=== PATIENT | female | born 1945 | race Caucasian/White ===

== ENCOUNTER 2016-06-01 05:53 | Emergency (ER) | payer MEDICARE ==
[2016-06-01] MEDS ORDERED: DIPH,PERTUS(ACELL)TETVAC-LF 0.5 ML VIAL IM ONE (05:59)
--- NOTE | 2016-06-01 06:06 | ED ---
General Adult HPI - General Stated complaint: right hand injury Time Seen by Provider: 06/01/16 05:55 Source: RN notes reviewed - History of Present Illness Initial comments: This is a 70-year-old female who presents to the emergency department complaining of a skin tear on the posterior aspect of her right hand she says she scraped across a metal at home. Patient does not have a tetanus up-to- date. Patient had no crush injury or blunt trauma to the area. Patient has full range of motion of her fingers wrist and hand. Patient denies any other injury. Patient states she took some Motrin prior to arrival. - Related Data Home Medications Medication Instructions Recorded Confirmed Lisinopril [Zestril] 5 mg PO DAILY 02/13/15 02/13/15 Previous Rx's Medication Instructions Recorded Diazepam [Valium] 5 mg PO TID PRN #20 tab 02/14/15 Allergies Allergy/AdvReac Type Severity Reaction Status Date / Time Penicillins Allergy Unknown Verified 02/13/15 22:50 Review of Systems ROS Statement: Those systems with pertinent positive or pertinent negative responses have been documented in the HPI. ROS Other: All systems not noted in ROS Statement are negative. Past Medical History Past Medical History: Hypertension History of Any Multi-Drug Resistant Organisms: None Reported Past Surgical History: Cholecystectomy, Hysterectomy, Orthopedic Surgery Additional Past Surgical History / Comment(s): bharat knees Past Psychological History: No Psychological Hx Reported Smoking Status: Never smoker Past Alcohol Use History: None Reported Past Drug Use History: None Reported General Exam - General Exam Comments Initial Comments: GENERAL Patient is well-developed and well-nourished. Patient is in mild distress. EYES Patient's pupils are equal and round. Extraocular motion is intact SKIN Unremarkable NEURO The patient is alert and oriented 3 PYSCH Patient has normal interpersonal interactions. MUSCULOSKELETAL Patient has a skin tear in the shape of the posterior aspect of her right hand. Medical Decision Making - Medical Decision Making patient had a skin tear which I used Dermabond to approximate and then Steri- Strips were placed over it. Patient received a tetanus in the emergency department Disposition Clinical Impression: Skin tear of hand without complication Disposition: HOME SELF-CARE Condition: Good Instructions: Skin Tear (ED) Referrals: Ijeoma Saldaña MD [Primary Care Provider] - 1-2 days Time of Disposition: 06:06
[2016-06-01 06:29] VITALS: BP 138/63; PULSE 58; RESP 20; TEMP 97
== END 2016-06-01 06:28 | disposition home or self-care (01) ==
LOC: EC 05:53
DX: S61.411A Laceration without foreign body of right hand, initial encounter (principal); W45.8XXA Other foreign body or object entering through skin, initial encounter; I10 Essential (primary) hypertension; Z79.899 Other long term (current) drug therapy; Z88.0 Allergy status to penicillin
CPT/HCPCS: 12001; 90471; 90715; 99282

== ENCOUNTER → 2017-10-23 | Outpatient (CLI) | payer MEDICARE ==
[2017-10-23 09:23] LABS: Albumin 3.9 g/dL (3.5-5.0); Calcium 9.3 mg/dL (8.4-10.2); Potassium 4.6 mmol/L (3.5-5.1); Total Bilirubin 0.9 mg/dL (0.2-1.3); Total Protein 6.8 g/dL (6.3-8.2)
[2017-10-23 19:03] LABS: Hemoglobin A1C 7.4 % (4.0-6.0)
== END | disposition home or self-care (01) ==
LOC: LABWHC1 07:54
PROVIDERS: ATTEND Internal Medicine
DX: E11.9 Type 2 diabetes mellitus without complications (principal); E78.5 Hyperlipidemia, unspecified; I10 Essential (primary) hypertension
CPT/HCPCS: 36415; 80053; 80061; 83036

== ENCOUNTER → 2017-11-12 | Outpatient (CLI) | payer MEDICARE ==
--- NOTE | 2017-11-13 14:33 | MM ---
Reason for exam: screening (asymptomatic). Last mammogram was performed 2 years and 8 months ago. History: Patient is postmenopausal and has history of endometrial cancer at age 23. Family history of breast cancer in mother at age 60. Stereotactic core biopsy of the right breast, April 25, 2004. Took hormonal contraceptives for 6 months. Physical Findings: A clinical breast exam by your physician is recommended on an annual basis and results should be correlated with mammographic findings. MG Screening Mammo w CAD Bilateral CC and MLO view(s) were taken. Prior study comparison: March 07, 2015, bilateral MG screening mammo w CAD. October 19, 2010, bilateral digital screening mammo w/CAD. Finding #1: There are typically benign circumscribed round oval stable masses in both breasts. Finding #2: There are typically benign calcifications in both breasts. No suspicious abnormality. Right biopsy marker noted. No significant changes in finding since March 07, 2015 and October 19, 2010. ASSESSMENT: Benign, BI-RAD 2 RECOMMENDATION: Routine screening mammogram of both breasts in 1 year.
== END | disposition home or self-care (01) ==
LOC: RADMAMWWP 07:08
PROVIDERS: ATTEND Internal Medicine
DX: Z12.31 Encounter for screening mammogram for malignant neoplasm of breast (principal)
CPT/HCPCS: 77067

== ENCOUNTER → 2018-01-27 | Outpatient (CLI) | payer MEDICARE ==
[2018-01-27 08:40] LABS: Albumin 3.9 g/dL (3.5-5.0); Calcium 9.3 mg/dL (8.4-10.2); Potassium 4.7 mmol/L (3.5-5.1); Total Bilirubin 0.8 mg/dL (0.2-1.3); Total Protein 6.9 g/dL (6.3-8.2)
[2018-01-27 19:44] LABS: Hemoglobin A1C 7.2 % (4.0-6.0)
== END | disposition home or self-care (01) ==
LOC: LABWHC1 07:18
PROVIDERS: ATTEND Internal Medicine
DX: E11.65 Type 2 diabetes mellitus with hyperglycemia (principal); I10 Essential (primary) hypertension; E78.2 Mixed hyperlipidemia
CPT/HCPCS: 36415; 80053; 80061; 83036

== ENCOUNTER → 2018-09-04 | Outpatient (CLI) | payer MEDICARE ==
[2018-09-04 17:23] LABS: Anion Gap 7.8 mmol/L (4.00-12.00); Carbon Dioxide 26.2 mmol/L (21.6-31.8); Potassium 4.9 mmol/L (3.5-5.5)
[2018-09-04 19:43] LABS: Hemoglobin A1C 7.1 % (4.0-6.0)
== END | disposition home or self-care (01) ==
LOC: LABWHC1 07:58
PROVIDERS: ATTEND Internal Medicine
DX: E11.9 Type 2 diabetes mellitus without complications (principal)
CPT/HCPCS: 36415; 80051; 82565; 83036; 84520

== ENCOUNTER → 2018-12-24 | Outpatient (CLI) | payer MEDICARE ==
[2018-12-24 11:28] LABS: African American GFR (CKD) 63.8 (60.0-200.0); Albumin 3.9 g/dL (3.80-4.90); Albumin/Globulin Ratio 1.7 (1.60-3.17); Anion Gap 13.6 mmol/L (4.00-12.00); Carbon Dioxide 24.4 mmol/L (21.6-31.8); Chol/HDL Ratio 3.55; Globulin 2.3 g/dL (1.6-3.3); LDL Cholesterol,Calculated 99.6 mg/dL (0.0-131.0); Non-African American GFR(CKD) 55.1 (60.0-200.0); Potassium 4.3 mmol/L (3.5-5.5); Total Bilirubin 1.1 mg/dL (0.3-1.2); Total Protein 6.2 g/dL (6.2-8.2); VLDL Calculation 30.4 mg/dL (5.00-40.00)
[2018-12-24 14:26] LABS: Hemoglobin A1C 6.7 % (4.0-6.0)
== END | disposition home or self-care (01) ==
LOC: LABWHC1 06:53
PROVIDERS: ATTEND Internal Medicine
DX: E11.9 Type 2 diabetes mellitus without complications (principal); I10 Essential (primary) hypertension
CPT/HCPCS: 36415; 80053; 80061; 83036

== ENCOUNTER → 2019-01-20 | Outpatient (CLI) | payer MEDICARE ==
--- NOTE | 2019-01-21 11:01 | MM ---
Reason for exam: screening (asymptomatic). Last mammogram was performed 1 year and 2 months ago. History: Patient is postmenopausal and has history of endometrial cancer at age 23. Family history of breast cancer in mother at age 60. Stereotactic core biopsy of the right breast, April 25, 2004. Took hormonal contraceptives for 6 months. Physical Findings: A clinical breast exam by your physician is recommended on an annual basis and results should be correlated with mammographic findings. MG 3D Screening Mammo W/Cad Bilateral CC and MLO view(s) were taken. Prior study comparison: November 12, 2017, bilateral MG screening mammo w CAD. March 07, 2015, bilateral MG screening mammo w CAD. There are scattered fibroglandular densities. Benign appearing bilateral calcifications. No suspicious abnormality. No significant changes when compared with prior studies. ASSESSMENT: Benign, BI-RAD 2 RECOMMENDATION: Routine screening mammogram of both breasts in 1 year.
== END | disposition home or self-care (01) ==
LOC: RADMAMWWP 15:00
PROVIDERS: ATTEND Internal Medicine
DX: Z12.31 Encounter for screening mammogram for malignant neoplasm of breast (principal)
CPT/HCPCS: 77063; 77067

== ENCOUNTER → 2019-06-01 | Outpatient (CLI) | payer MEDICARE ==
[2019-06-01 14:56] LABS: Hemoglobin A1C 6.7 % (4.0-6.0)
[2019-06-01 15:58] LABS: African American GFR (CKD) 72.5 (60.0-200.0); Albumin 3.9 g/dL (3.80-4.90); Albumin/Globulin Ratio 1.77 (1.60-3.17); Anion Gap 7.5 mmol/L (4.00-12.00); BUN/Creat Ratio 16.67 Ratio (12.00-20.00); Calcium 8.8 mg/dL (8.7-10.3); Carbon Dioxide 26.5 mmol/L (21.6-31.8); Globulin 2.2 g/dL (1.6-3.3); Non-African American GFR(CKD) 62.5 (60.0-200.0); Potassium 4.4 mmol/L (3.5-5.5); Total Bilirubin 0.7 mg/dL (0.3-1.2); Total Protein 6.1 g/dL (6.2-8.2)
== END | disposition home or self-care (01) ==
LOC: LABWHC1 07:57
PROVIDERS: ATTEND Internal Medicine
DX: I10 Essential (primary) hypertension (principal); E11.9 Type 2 diabetes mellitus without complications
CPT/HCPCS: 36415; 80053; 83036

== ENCOUNTER → 2020-02-11 | Outpatient (CLI) | payer MEDICARE ==
--- NOTE | 2020-02-15 11:16 | MM ---
Reason for exam: screening (asymptomatic). Last mammogram was performed 1 year and 1 month ago. History: Patient is postmenopausal and has history of endometrial cancer at age 23. Family history of breast cancer in mother at age 60. Stereotactic core biopsy of the right breast, April 25, 2004. Took hormonal contraceptives for 6 months. Physical Findings: A clinical breast exam by your physician is recommended on an annual basis and results should be correlated with mammographic findings. MG 3D Screening Mammo W/Cad Bilateral CC and MLO view(s) were taken. Prior study comparison: January 20, 2019, bilateral MG 3d screening mammo w/cad. November 12, 2017, bilateral MG screening mammo w CAD. There are scattered fibroglandular densities. Previous mammotome biopsy in the right breast. There is chronic nodularity in the left breast. No significant changes when compared with prior studies. ASSESSMENT: Benign, BI-RAD 2 RECOMMENDATION: Routine screening mammogram of both breasts in 1 year.
== END | disposition home or self-care (01) ==
LOC: RADMAMWWP 13:47
PROVIDERS: ATTEND Internal Medicine
DX: Z12.31 Encounter for screening mammogram for malignant neoplasm of breast (principal); Z80.3 Family history of malignant neoplasm of breast
CPT/HCPCS: 77063; 77067

== ENCOUNTER → 2021-01-08 | Outpatient (CLI) | payer MEDICARE ==
[2021-01-08 11:58] LABS: African American GFR (CKD) 62.9 (60.0-200.0); Anion Gap 6.8 mmol/L (4.00-12.00); Carbon Dioxide 28.2 mmol/L (21.6-31.8); Non-African American GFR(CKD) 54.3 (60.0-200.0); Potassium 4.5 mmol/L (3.5-5.5)
== END | disposition home or self-care (01) ==
LOC: LABWHC1 07:10
PROVIDERS: ATTEND Internal Medicine
DX: E11.9 Type 2 diabetes mellitus without complications (principal); I10 Essential (primary) hypertension
CPT/HCPCS: 36415; 80051; 82565; 83036; 84520

== ENCOUNTER 2022-03-13 15:21 | Emergency (ER) | payer MEDICARE ==
[2022-03-13 15:36] VITALS: RESP 16
[2022-03-13] MEDS ORDERED: ORPHENADRINE 30 MG/ML 2 ML VIAL IM STA (16:18)
[2022-03-13] MEDS ORDERED: DEXAMETHASONE SOD PHOSPHATE 10 MG/ML 1 ML VIAL IM STA (16:18)
[2022-03-13] MEDS ORDERED: KETOROLAC 15 MG/ML 1 ML VIAL IM STA (16:18)
--- NOTE | 2022-03-13 16:23 | ED ---
Back Pain HPI - General Chief Complaint: Back Pain/Injury Stated Complaint: psychotic nerve pain Time Seen by Provider: 03/13/22 16:02 Source: patient Limitations: no limitations - History of Present Illness Initial Comments: Patient is a 76-year-old female presenting with chief complaint of lower back pain. Patient has a history of sciatic nerve pain, states that this pain feels identical to previous sciatica flareups. Patient states that after a large bowel movement today the pain is been flaring up. She has been using a lidocaine patch or Motrin at home with little relief. She admits to radiation of pain down the right leg. She denies any loss of bowel or bladder control or saddle paresthesia. No recent trauma or injury. No loss of range of motion. No fever, chills, nausea, vomiting, abdominal pain, chest pain, difficulty breathing. - Related Data Home Medications Medication Instructions Recorded Confirmed lisinopriL [Zestril] 5 mg PO DAILY 02/13/15 02/13/15 Previous Rx's Medication Instructions Recorded diazePAM [Valium] 5 mg PO TID PRN #20 tab 02/14/15 Cyclobenzaprine [Flexeril] 5 mg PO HS PRN #3 tab 03/13/22 Allergies Allergy/AdvReac Type Severity Reaction Status Date / Time Penicillins Allergy Unknown Verified 02/13/15 22:50 Review of Systems ROS Statement: Those systems with pertinent positive or pertinent negative responses have been documented in the HPI. ROS Other: All systems not noted in ROS Statement are negative. Past Medical History Past Medical History: Hypertension History of Any Multi-Drug Resistant Organisms: None Reported Past Surgical History: Cholecystectomy, Hysterectomy, Orthopedic Surgery Additional Past Surgical History / Comment(s): bharat knees Past Psychological History: No Psychological Hx Reported Past Alcohol Use History: None Reported Past Drug Use History: None Reported General Exam Limitations: no limitations General appearance: alert, in no apparent distress Head exam: Present: atraumatic, normocephalic, normal inspection Eye exam: Present: normal appearance, PERRL, EOMI. Absent: scleral icterus, conjunctival injection, periorbital swelling Neck exam: Present: normal inspection Extremities exam: Present: normal inspection, full ROM Back exam: Present: normal inspection, paraspinal tenderness Neurological exam: Present: alert, oriented X3, CN II-XII intact Psychiatric exam: Present: normal affect, normal mood Skin exam: Present: warm, dry, intact, normal color. Absent: rash Course Vital Signs 03/13/22 15:33 Temperature 98.1 F Pulse Rate 70 Respiratory 16 Rate Blood Pressure 194/84 O2 Sat by Pulse 100 Oximetry Medical Decision Making - Medical Decision Making Patient is a 76-year-old female presenting with chief complaint of lower back pain. No red flag symptoms. Patient has history of sciatic nerve pain, states this pain feels identical. Patient is given Toradol, Decadron, Norflex here in the ER. On reassessment patient reports great improvement in pain. She states that [facility] and will be following up in their office tomorrow. Patient has a family member to drive her home today. Educated on supportive treatment. Prescribed 3 days supply of cyclobenzaprine taken at night, instructed her not to take before driving or operating heavy machinery as this may cause drowsiness. Follow-up with PCP. Report back to ER with any new or worsening symptoms. Discussed return parameters and answered all questions. Patient conveyed verbal understanding and agreed to the plan. I discussed this case in detail with my attending Dr. Chavez. Disposition Clinical Impression: Mechanical back pain, Sciatica Disposition: HOME SELF-CARE Condition: Good Instructions (If sedation given, give patient instructions): Lumbar Radiculopathy (ED), Chronic Back Pain (DC), Lower Back Exercises (ED) Additional Instructions: Follow-up with PCP. Report back to ER with any new or worsening symptoms. Take medication as prescribed. Do not take before driving or operating heavy machinery, can cause drowsiness. Prescriptions: Cyclobenzaprine [Flexeril] 5 mg PO HS PRN #3 tab PRN Reason: Spasms Is patient prescribed a controlled substance at d/c from ED?: No Referrals: Ijeoma Saldaña MD [Primary Care Provider] - 1-2 days Time of Disposition: 17:28
[2022-03-13 18:05] VITALS: BP 148/78; PULSE 78; TEMP 98.2
== END 2022-03-13 18:04 | disposition home or self-care (01) ==
LOC: EC 15:21
DX: M54.31 Sciatica, right side (principal); I10 Essential (primary) hypertension; Z79.01 Long term (current) use of anticoagulants; Z88.0 Allergy status to penicillin
CPT/HCPCS: 99283; 96372 ×3; J1100; J2360; J1885

== ENCOUNTER → 2023-02-24 | Outpatient (CLI) | payer MEDICARE ==
[2023-02-24 11:37] LABS: BUN/Creat Ratio 18.18 Ratio (12.00-20.00); Chol/HDL Ratio 3.22 Ratio; Glucose 118 mg/dL (70-110); LDL Cholesterol,Calculated 89.1 mg/dL (0.0-131.0)
[2023-02-24 11:38] LABS: ALT 11 U/L (8-44); AST 14 U/L (13-35); Albumin 4.1 d/dL (3.8-4.9); Albumin/Globulin Ratio 1.46 Ratio (1.60-3.17); Alkaline Phosphatase 77 U/L (41-126); Calcium 9.2 mg/dL (8.7-10.3); Carbon Dioxide 25.3 mmol/L (21.6-31.8); Chloride 106 mmol/L (96-109); Globulin 2.8 d/dL (1.6-3.3); Potassium 4.7 mmol/L (3.5-5.5); Sodium 142 mmol/L (135-145); Total Bilirubin 0.6 mg/dL (0.3-1.2); Total Protein 6.9 d/dL (6.2-8.2)
== END | disposition home or self-care (01) ==
LOC: LABWHC1 08:03
PROVIDERS: ATTEND Psychiatry & Neurology Neurology
DX: I10 Essential (primary) hypertension (principal); E11.9 Type 2 diabetes mellitus without complications
CPT/HCPCS: 36415; 80053; 80061; 83036

== ENCOUNTER 2023-04-07 15:00 | Emergency (ER) | payer MEDICARE ==
[2023-04-07 15:14] VITALS: RESP 18; TEMP 98.2
--- NOTE | 2023-04-07 17:37 | ED ---
Recheck HPI - General Chief Complaint: Extremity Injury, Upper Stated Complaint: Fall, left arm injury Time Seen by Provider: 04/07/23 16:07 Source: EMS, RN notes reviewed, old records reviewed, Caregiver Mode of arrival: EMS Limitations: no limitations - History of Present Illness Initial Comments: This is a 77-year-old female to the emergency department for evaluation. Patient's to the emergency department after fall with left elbow pain severe, left upper arm pain. Patient is transferred for evaluation regarding orthopedics MD Complaint: medication refill request -: hour(s) Returns Today for: Called Because of Abnormal Lab/Test, persistent/worsening pain related to initial visit Symptoms Since Prior Visit: no new symptoms Context: planned re-check Associated Symptoms: none - Related Data Home Medications Medication Instructions Recorded Confirmed lisinopriL [Zestril] 5 mg PO DAILY 02/13/15 04/07/23 metFORMIN HCL [Glucophage] 500 mg PO BID-W/MEALS 04/07/23 04/07/23 Allergies Allergy/AdvReac Type Severity Reaction Status Date / Time Penicillins Allergy Anaphylaxis Verified 04/07/23 16:32 /Swelling Review of Systems ROS Statement: Those systems with pertinent positive or pertinent negative responses have been documented in the HPI. ROS Other: All systems not noted in ROS Statement are negative. Past Medical History Past Medical History: Diabetes Mellitus, Hypertension History of Any Multi-Drug Resistant Organisms: None Reported Past Surgical History: Cholecystectomy, Hysterectomy, Orthopedic Surgery Additional Past Surgical History / Comment(s): bharat knees Past Psychological History: No Psychological Hx Reported Smoking Status: Former smoker Past Alcohol Use History: None Reported Past Drug Use History: None Reported General Exam - General Exam Comments Initial Comments: Severe left elbow pain, decreased range of motion Limitations: no limitations General appearance: alert, in no apparent distress, anxious Head exam: Present: atraumatic, normocephalic, normal inspection Eye exam: Present: normal appearance, PERRL, EOMI. Absent: scleral icterus, conjunctival injection, periorbital swelling ENT exam: Present: normal exam, mucous membranes moist Neck exam: Present: normal inspection. Absent: tenderness, meningismus, lymphadenopathy Respiratory exam: Present: normal lung sounds bilaterally. Absent: respiratory distress, wheezes, rales, rhonchi, stridor Cardiovascular Exam: Present: regular rate, normal rhythm, normal heart sounds. Absent: systolic murmur, diastolic murmur, rubs, gallop, clicks GI/Abdominal exam: Present: soft, normal bowel sounds. Absent: distended, tenderness, guarding, rebound, rigid Extremities exam: Present: normal inspection, full ROM, normal capillary refill. Absent: tenderness, pedal edema, joint swelling, calf tenderness Back exam: Present: normal inspection Neurological exam: Present: alert, oriented X3, CN II-XII intact Psychiatric exam: Present: normal affect, normal mood Skin exam: Present: warm, dry, intact, normal color. Absent: rash Course Vital Signs 04/07/23 04/07/23 04/07/23 15:08 17:49 18:45 Temperature 98.2 F Pulse Rate 60 58 L 64 Respiratory 18 18 18 Rate Blood Pressure 183/68 186/83 165/76 O2 Sat by Pulse 98 99 97 Oximetry - Reevaluation(s) Reevaluation #1: Medical records reviewed Reevaluation #2: Patient's pain is improved Reevaluation #3: Patient informed results questions answered Reevaluation #4: Was pt. sent in by a medical professional or institution (, PA, SUPPLY SERVICE WORKER, urgent care, hospital, or fdc...) When possible be specific @ -no Did you speak to anyone other than the patient for history (EMS, parent, family, police, friend...)? What history was obtained from this source @ -no Did you review nursing and triage notes (agree or disagree)? Why? @ -agree Are old charts reviewed (outside hosp., previous admission, EMS record, old EKG, old radiological studies, urgent care reports/EKG's, fdc records)? Report findings @ -yes Differential Diagnosis (chest pain, altered mental status, abdominal pain women, abdominal pain men, vaginal bleeding, weakness, fever, dyspnea, syncope, headache, dizziness, GI bleed, back pain, seizure, CVA, palpatations, mental health, musculoskeletal)? @ -prior EKG interpreted by me (3pts min.). @ -no X-rays interpreted by me (1pt min.). @ -yes CT interpreted by me (1pt min.). @ -yes U/S interpreted by me (1pt. min.). @ -no What testing was considered but not performed or refused? (CT, X-rays, U/S, labs)? Why? @ -none What meds were considered but not given or refused? Why? @ -none Did you discuss the management of the patient with other professionals (professionals i.e. , PA, SUPPLY SERVICE WORKER, lab, RT, psych nurse, addiction social worker, casework specialist, teacher, chief medical officer, case liner)? Give summary @ -no Was smoking cessation discussed for >3mins.? @ -no Was critical care preformed (if so, how long)? @ -no Were there social determinants of health that impacted care today? How? (Homelessness, low income, unemployed, alcoholism, drug addiction, transpor tation, low edu. Level, literacy, decrease access to med. care, correction, rehab)? @ -none Was there de-escalation of care discussed even if they declined (Discuss DNR or withdrawal of care, Hospice)? DNR status @ -no What co-morbidities impacted this encounter? (DM, HTN, Smoking, COPD, CAD, Cancer, CVA, ARF, Chemo, Hep., AIDS, mental health diagnosis, sleep apnea, morbid obesity)? @ -none Was patient admitted / discharged? Hospital course, mention meds given and route, prescriptions, significant lab abnormalities, going to OR and other pertinent info. @ - 77 female status post trip and fall with supracondylar fracture, splinted here in the ER patient can be discharged home Undiagnosed new problem with uncertain prognosis? @ -no Drug Therapy requiring intensive monitoring for toxicity (Heparin, Nitro, Insulin, Cardizem)? @ -no Were any procedures done? @ -no Diagnosis/symptom? @ -Left supracondylar fracture Acute, or Chronic, or Acute on Chronic? @ -Acute Uncomplicated (without systemic symptoms) or Complicated (systemic symptoms)? @ -Complicated Side effects of treatment? @ -no Exacerbation, Progression, or Severe Exacerbation? @ -exacerbation Poses a threat to life or bodily function? How? (Chest pain, [place], [place], pneumonia, PE, COPD, DKA, ARF, appy, cholecystitis, CVA, Diverticulitis, Homicidal, Suicidal, threat to staff... and all critical care pts) @ -no Medical Decision Making - Medical Decision Making 77 female to the emergency department status post fall patient a trip and fall with left supracondylar was fracture. Fractures splinted, patient can be discharged home - Radiology Data Radiology results: report reviewed (X-ray left humerus CT left humerus is positive for supracondylar fracture), image reviewed Disposition Clinical Impression: Fracture of humerus, Fall, Left supracondylar humerus fracture Disposition: HOME SELF-CARE Condition: Good Is patient prescribed a controlled substance at d/c from ED?: No Referrals: Ijeoma Saldaña MD [Primary Care Provider] - 1-2 days Jona Moore MD [REFERRING] - 1-2 days Froylan Martinez DO [Doctor of Osteopathic Medicine] - 1-2 days Time of Disposition: 19:30
--- NOTE | 2023-04-07 18:26 | XR ---
EXAMINATION TYPE: XR humerus LT DATE OF EXAM: 04/07/2023 6:04 PM CLINICAL INDICATION:Female, 77 years old with history of pain; [facility] COMPARISON: None TECHNIQUE: The left humerus was examined in frontal and lateral projections. FINDINGS: Limit evaluation of the distal humerus due to patient positioning No evidence of acute osse ous pathology, joint dislocation, or soft tissue swelling. The remaining portions of the visualized c hest are unremarkable. IMPRESSION: Limited evaluation of the distal humerus given patient positioning, No acute osseous pathology. If th ere is concern for elbow fracture consider dedicated elbow radiographs.
[2023-04-07] MEDS ORDERED: HYDROcodone/APAP 5-325MG 1 EACH TAB PO STA (18:49)
[2023-04-07 19:08] VITALS: BP 165/76; PULSE 64
--- NOTE | 2023-04-07 19:28 | CT ---
EXAMINATION TYPE: CT humerus LT wo con CT DLP: 1116.5 mGycm, Automated exposure control for dose reduction was used. DATE OF EXAM: 04/07/2023 7:14 PM COMPARISON: . Extremity radiograph same day. CLINICAL INDICATION:Female, 77 years old with history of fall; [facility], Fractured distal humerus confirme d on prior Xray. TECHNIQUE: Axial images were obtained of the CT humerus LT wo con, Additional coronal and sagittal re formatted images and soft tissue and bone window were obtained for review. 3-D reconstruction was cre ated on a separate workstation. Contrast used: mL of , (None if empty) Oral contrast used: (None if empty) FINDINGS: Mild degeneration changes of the acromioclavicular joint. The humerus demonstrates a suprac ondylar fracture with mild displacement. This does extend into the intra-articular portion. The ulna appears intact. The radial head has fracture with intra-articular extension series 201 image 110. IMPRESSION: 1. Supracondylar fracture of the distal humerus with intra-articular extension. 2. Mildly displaced radial for head intra-articular fracture.
== END 2023-04-07 20:31 | disposition home or self-care (01) ==
LOC: EC 15:00
DX: S42.412A Displaced simple supracondylar fracture without intercondylar fracture of left humerus, initial encounter for closed fracture (principal); I10 Essential (primary) hypertension; E11.9 Type 2 diabetes mellitus without complications; Z79.84 Long term (current) use of oral hypoglycemic drugs; Z87.891 Personal history of nicotine dependence; Z88.0 Allergy status to penicillin; Z90.49 Acquired absence of other specified parts of digestive tract; W01.0XXA Fall on same level from slipping, tripping and stumbling without subsequent striking against object, initial encounter
CPT/HCPCS: 99284

== ENCOUNTER → 2024-02-05 | Outpatient (CLI) | payer MEDICARE ==
--- NOTE | 2024-02-08 17:03 | MM ---
Reason for Exam: Screening (asymptomatic). Last mammogram was performed 4 year(s) and 0 month(s) ago. Patient History: Menarche at age 14. First Full-Term at age 15. Hysterectomy at age 21. Postmenopausal. Endometrial cancer, age 23. Hormonal Contraceptives for 6 months. 04/25/2004, Stereotactic Core Biopsy on the Right side. Mother had breast cancer, age 60. Risk Values: Gudelia 5 year model risk: 3.3%. NCI Lifetime model risk: 5.1%. Prior Study Comparison: 11/12/2017 Bilateral Screening Mammogram, [facility]. 01/20/2019 Bilateral Screening Mammogram, [facility]. 02/11/2020 Bilateral Screening Mammogram, [facility]. Tissue Density: There are scattered areas of fibroglandular density. Findings: Analyzed By CAD. Chronic nodularity on the left. Benign vascular calcifications. There is no suspicious group of microcalcifications or new suspicious mass in either breast. Overall Assessment: Benign, BI-RAD 2 Management: Screening Mammogram of both breasts in 1 year. See note below in regards to the patient's increased 5 year Gudelia score. Patient should continue monthly self-breast exams. A clinical breast exam by your physician is recommended on an annual basis. This exam should not preclude additional follow-up of suspicious palpable abnormalities. Note on Gudelia scores and lifetime risk: 1. A Gudelia score greater than 3% is considered moderate risk. If this is the case, consider specialist referral to assess eligibility for a risk reducing agent. 2. If overall lifetime risk for the development of breast cancer is 20% or higher, the patient may qualify for future screening with alternating mammogram and breast MRI. [facility], , 02/08/2024 5:01 PM. Electronically signed and approved by: Jian Villa M.D. Radiologist
== END | disposition home or self-care (01) ==
LOC: RADMAMWWP 13:28
PROVIDERS: ATTEND Family Medicine
DX: Z12.31 Encounter for screening mammogram for malignant neoplasm of breast (principal); R92.323 Mammographic fibroglandular density, bilateral breasts; R92.1 Mammographic calcification found on diagnostic imaging of breast; Z80.3 Family history of malignant neoplasm of breast; Z78.0 Asymptomatic menopausal state
CPT/HCPCS: 77063; 77067

== ENCOUNTER → 2024-06-08 | Outpatient (CLI) | payer MEDICARE ==
--- NOTE | 2024-06-08 14:39 | US ---
EXAMINATION TYPE: US kidneys/renal and bladder DATE OF EXAM: 06/08/2024 COMPARISON: CT 2014 CLINICAL INDICATION: Female, 78 years old with history of R94.4 DECR GFR N18.32 CKD STAGE 3B; TECHNIQUE: Grayscale imaging of the bilateral kidneys and urinary bladder: FINDINGS: EXAM MEASUREMENTS: Right Kidney: 9.7 x 4.3 x 4.2 cm Left Kidney: 9.1 x 3.9 x 4.6 cm Right Kidney: wnl Left Kidney: 1.9cm cystic area mid pole Bladder: wnl Bilateral Jets seen: no There is no evidence for hydronephrosis at this point in time. No nephrolithiasis is seen. No richard s are identified. The urinary bladder is anechoic. IMPRESSION: 1. No obstructive uropathy or renal calculus. 2. Left simple appearing renal cysts. [facility], , 06/08/2024 2:37 PM
== END | disposition home or self-care (01) ==
LOC: RADUSWWP 13:43
PROVIDERS: ATTEND Family Medicine
DX: N18.32 Chronic kidney disease, stage 3b (principal); R94.4 Abnormal results of kidney function studies; N28.1 Cyst of kidney, acquired
CPT/HCPCS: 76770